=== PATIENT | female | born 1990 | race Caucasian/White ===

== ENCOUNTER 2019-05-06 19:42 | Emergency (ER) | payer BC ==
[~2019-05-06] VITALS: Ht 160 cm; Wt 83.0 kg
--- NOTE | 2019-05-06 19:49 | PHYS DOC ---
Adult General Chief Complaint Chief Complaint: "...I ve been having fever and chills the last two day.. can't seem to get warm at times... body aches.. tired.. my fever was 100. 4 at home.. I took some tylenol..." HPI HPI Patient is a 28 year old female who presents with above hx and complaints fever,arthralgia, malaise and myalgia. Pt. did get flu vaccination in 2019. Patient denies any travel outside of the [place] area recently. Patient normally follows at [facility]. No history immunosuppression. Review of Systems Review of Systems Constitutional: History of fever or chills [] Eyes: Denies change in visual acuity, redness, or eye pain [] HENT: History of nasal congestion and sore throat [] Respiratory: History of nonproductive cough Cardiovascular: No additional information not addressed in HPI [] GI: Denies abdominal pain, nausea, vomiting, bloody stools or diarrhea [] : Denies dysuria or hematuria [] Musculoskeletal: Complaints of myalgia or arthralgia Integument: Denies rash or skin lesions [] Neurologic: Denies headache, focal weakness or sensory changes [] Endocrine: Denies polyuria or polydipsia [] All other systems were reviewed and found to be within normal limits, except as documented in this note. Family History Family History Son goes to day care- occasional upper respiratory infection Current Medications Current Medications See nursing for home meds Allergies Allergies Allergic to albuterol Physical Exam Physical Exam Constitutional: Moderate acute distress, non-toxic appearance. [] HENT: Normocephalic, atraumatic, bilateral external ears normal, oropharynx moist, postpharyngeal drainage and erythema ,no oral exudates, nose swollen turbinates and clear rhinorrhea Eyes: PERRLA, EOMI, conjunctiva normal, no discharge. [] Neck: Normal range of motion, no tenderness, supple, no stridor. [] Cardiovascular: Tachycardia Heart rate regular rhythm, no murmur [] Lungs & Thorax: Bilateral breath sounds equal apex with few scattered wheezes on auscultation [] Abdomen: Bowel sounds normal, soft, no tenderness, no masses, no pulsatile masses. [] Skin: Warm, dry, no erythema, no rash. [] Back: No tenderness, no CVA tenderness. [] Extremities: No tenderness, no cyanosis, no clubbing, ROM intact, no edema. [] Neurologic: Alert and oriented X 3, normal motor function, normal sensory function, no focal deficits noted. [] Psychologic: Affect normal, judgement normal, mood normal. [] EKG EKG [] Radiology/Procedures Radiology/Procedures [] Course & Med Decision Making Course & Med Decision Making Pertinent Labs and Imaging studies reviewed. (See chart for details) Get adequate rest. Push fluids. Take Tylenol or ibuprofen for discomfort. Self isolate for 14 days. No travel. 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 Follow-up with C DEVIN for up-to-date information on CO-19 Impression: 1. Viral syndrome [] Dragon Disclaimer Dragon Disclaimer This electronic medical record was generated, in whole or in part, using a voice recognition dictation system. Departure Departure: Disposition: 01 HOME/RESIDENCE PRIOR TO ADM Condition: STABLE Referrals: PCP,UNKNOWN (PCP) Dragon Disclaimer This chart was dictated in whole or in part using Voice Recognition software in a busy, high-work load, and often noisy Emergency Department environment. It may contain unintended and wholly unrecognized errors or omissions. Dragon Disclaimer This chart was dictated in whole or in part using Voice Recognition software in a busy, high-work load, and often noisy Emergency Department environment. It may contain unintended and wholly unrecognized errors or omissions. JOHNATHAN JOHNSON MD May 06, 2019 19:49
[2019-05-06 20:52] LABS: BARBITURATES NEG (NEG); BENZODIAZEPINES NEG (NEG); CANNABINOIDS NEG (NEG); COCAINE NEG (NEG); METHADONE NEG (NEG); OPIATES NEG (NEG); PHENCYCLIDINE NEG (NEG)
[2019-05-06 20:57] LABS: INFLUENZA A PATIENT NEGATIVE (NEGATIVE); INFLUENZA B PATIENT NEGATIVE (NEGATIVE)
[2019-05-06 21:16] LABS: AMPHETAMINE/METHAMPHETAMINE NEG (NEG)
[2019-05-06 21:19] LABS: BILIRUBIN,URINE NEG (NEG); CLARITY,URINE CLEAR; COLOR,URINE YELLOW; GLUCOSE,URINE NEG (NEG); NITRITE,URINE NEG (NEG)
[2019-05-06 21:20] LABS: BACTERIA,URINE 0 /HPF (0-FEW); RBC,URINE 0 /HPF (0-2); SQUAMOUS EPITHELIAL CELL,UR OCC /LPF
[2019-05-06 21:40] VITALS: BP 103/83
== END 2019-05-06 21:41 | disposition home or self-care (01) ==
LOC: ER 19:42
DX: B34.9 Viral infection, unspecified (principal); Z88.8 Allergy status to other drugs, medicaments and biological substances
CPT/HCPCS: 36415; 80307; 81001; 81025; 87070; 87804; 87880; 99283

== ENCOUNTER 2020-05-01 17:11 | Emergency (ER) | payer BC ==
[~2020-05-01] VITALS: Ht 157.5 cm; Wt 89.2 kg
[2020-05-01 17:45] VITALS: BP 165/98
[2020-05-01] MEDS ORDERED: ONDANSETRON PF 4 MG/2 ML VIAL. IVP ONE (17:45)
[2020-05-01] MEDS ORDERED: IV NORMAL SALINE 1,000ML 1,000 ML IV ONE (17:45)
[2020-05-01 18:03] LABS: BASO # 0.1 x10^3/uL (0.0-0.2); BASO % 1 % (0-3); EOS # 0.1 x10^3/uL (0.0-0.7); EOS % 2 % (0-3); HEMATOCRIT 44.3 % (36.0-47.0); HEMOGLOBIN 14.4 g/dL (12.0-15.5); LYMPH # 1.6 x10^3/uL (1.0-4.8); LYMPH % 20 % (24-48); MEAN CORPUSCULAR HEMOGLOBIN 29 pg (25-35); MEAN CORPUSCULAR HGB CONC 33 g/dL (31-37); MEAN CORPUSCULAR VOLUME 88 fL (79-100); MONO # 0.6 x10^3/uL (0.0-1.1); MONO % 8 % (0-9); NEUT # 5.6 x10^3uL (1.8-7.7); NEUT % 69 % (31-73); PLATELET COUNT 279 x10^3/uL (140-400); RED BLOOD COUNT 5.02 x10^6/uL (3.50-5.40); RED CELL DISTRIBUTION WIDTH 15.5 % (11.5-14.5); WHITE BLOOD COUNT 8.1 x10^3/uL (4.0-11.0)
[2020-05-01 18:13] LABS: GFR 65.1; POTASSIUM 3.8 mmol/L (3.5-5.1)
[2020-05-01 18:32] LABS: BACTERIA,URINE 0 /HPF (0-FEW); BILIRUBIN,URINE NEG (NEG); CLARITY,URINE CLEAR; COLOR,URINE YELLOW; GLUCOSE,URINE NEG (NEG); NITRITE,URINE NEG (NEG); RBC,URINE 0 /HPF (0-2); SQUAMOUS EPITHELIAL CELL,UR FEW /LPF
--- NOTE | 2020-05-01 18:39 | RAD ---
Exam: Ultrasound OB less than 14 weeks Indication: Low pelvic pain Technique: Real-time grayscale and color Doppler images of the pelvis were obtained by the department infrastructure developer. Comparisons: None FINDINGS: Uterus measures 8.3 x 5.3 x 4.5 cm. Within the endometrium there is a anechoic cystic structure. No internal yolk sac or pole ident ified. Right ovary measures 2.4 x 2.0 x 1.8 cm. Left ovary measures 2.9 x 3.1 x 2.4 cm. Within the left ovary there is a mildly complex cystic lesion left ovary measuring 2.0 cm. There is a small amount of free fluid noted in the cul-de-sac. IMPRESSION: Question possible gestational sac within the endometrium. No pole or yolk sac identified. Diffe rential considerations include early IUP, failed IUP. A nonvisualized ectopic with single g estational sac would be rare. Recommend correlation with serial beta-hCGs and short-term follow-up ul trasound. Electronically signed by: Goldie Soria MD (05/01/2020 6:36 PM) BREANNA
--- NOTE | 2020-05-01 18:59 | PHYS DOC ---
Past History Past Medical History: No Pertinent History (KEISHA EATON APRN) Past Surgical History: No Surgical History Additional Past Surgical Histo: tubal reversal surgery (KEISHA EATON APRN) Alcohol Use: None (KEISHA EATON APRN) Adult General Chief Complaint Chief Complaint: ABDOMINAL PAIN IN HPI HPI Patient is a 29-year-old female who presents emergency department stating her DIRECTOR INTERNAL AUDIT at [facility] sent her to be seen in the ER today for evaluation of hCG level and transvaginal ultrasound. Patient states her last menstrual cycle was March 29. Lasted 3 days with normal duration of flow. States she is a 7 para 3 with 3 miscarriages early in . Patient states her hCG level today at her OB clinic was 3188. Patient states she has been having intermittent low pelvic cramping, states she just wants to find out if she has an ectopic or not. Patient reports a past surgical history of tubal ligation in 2015, tubal ligation reversal in 2017 so that she can have children, a cyst removed from her right wrist in 2008, reports an allergy to albuterol, states she takes no medications at home except for vitamin [id number]. Patient denies any recent fever or chills, denies abdominal pain or abdominal cramping at this time, denies chest pain shortness of breath chest congestion or nasal congestion. Patient denies vaginal discharge, vaginal bleeding, denies STI concerns. Patient denies any other physical complaints or physical concerns. (KEISHA EATON APRN) Review of Systems Review of Systems 14 body systems of review of systems have been reviewed. See HPI for pertinent positives and negative responses, otherwise all other systems are negative, nonpertinent or noncontributory. (KEISHA EATON APRN) Current Medications Current Medications Current Medications Medications (Trade) Dose Ordered Sig/Whit Start Time Stop Time Status Last Admin Dose Admin Ondansetron HCl (Zofran) 4 mg 1X ONCE 05/01/20 17:45 05/01/20 17:50 DC 05/01/20 17:58 4 MG Sodium Chloride 1,000 ml @ 1,000 mls/hr 1X ONCE 05/01/20 17:45 05/01/20 18:44 DC 05/01/20 17:58 1,000 MLS/HR (KEISHA EATON APRN) Allergies Allergies Allergies Coded Allergies Type Severity Reaction Last Updated Verified albuterol Allergy Intermediate Hives 05/06/19 Yes (KEISHA EATON APRN) Physical Exam Physical Exam Constitutional: Well developed, well nourished, no acute distress, non-toxic appearance. HENT: Normocephalic, atraumatic, bilateral external ears normal, oropharynx moist, no oral exudates, nose normal. Eyes: PERRLA, EOMI, conjunctiva normal, no discharge. Neck: Normal range of motion, no tenderness, supple, no stridor. Cardiovascular:Heart rate regular rhythm, no murmur, heart sounds S1-S2 to auscultation. Lungs & Thorax: Bilateral breath sounds clear to auscultation, no adventitious lung sounds appreciated. Abdomen: Bowel sounds normal, soft, no tenderness, no masses, no pulsatile masses. Skin: Warm, dry, no erythema, no rash. Back: No tenderness, no CVA tenderness. Extremities: No tenderness, no cyanosis, no clubbing, ROM intact, no edema. Neurologic: Alert and oriented X 3, normal motor function, normal sensory function, no focal deficits noted. Psychologic: Affect normal, judgement normal, mood normal. (KEISHA EATON APRN) Current Patient Data Vital Signs Vital Signs Date Time Temp Pulse Resp B/P (MAP) Pulse Ox O2 Delivery O2 Flow Rate FiO2 05/01/20 17:45 98.5 90 20 165/98 (120) 99 05/01/20 17:44 Room Air Lab Results Laboratory Tests Test 05/01/20 17:20 05/01/20 17:25 White Blood Count 8.1 x10^3/uL Red Blood Count 5.02 x10^6/uL Hemoglobin 14.4 g/dL Hematocrit 44.3 % Mean Corpuscular Volume 88 fL Mean Corpuscular Hemoglobin 29 pg Mean Corpuscular Hemoglobin Concent 33 g/dL Red Cell Distribution Width 15.5 % Platelet Count 279 x10^3/uL Neutrophils (%) (Auto) 69 % Lymphocytes (%) (Auto) 20 % Monocytes (%) (Auto) 8 % Eosinophils (%) (Auto) 2 % Basophils (%) (Auto) 1 % Neutrophils # (Auto) 5.6 x10^3uL Lymphocytes # (Auto) 1.6 x10^3/uL Monocytes # (Auto) 0.6 x10^3/uL Eosinophils # (Auto) 0.1 x10^3/uL Basophils # (Auto) 0.1 x10^3/uL Urine Collection Type Unknown Urine Color Yellow Urine Clarity Clear Urine pH 8.5 Urine Specific [place] 1.020 Urine Protein Trace Urine Glucose (UA) Neg mg/dL Urine Ketones (Stick) Neg mg/dL Urine Blood Neg Urine Nitrite Neg Urine Bilirubin Neg Urine Urobilinogen Dipstick 1.0 mg/dL Urine Leukocyte Esterase Trace Urine RBC 0 /HPF Urine WBC 1-4 /HPF Urine Squamous Epithelial Cells Few /LPF Urine Bacteria 0 /HPF Maternal Serum HCG Beta Subunit 3726 mIU/mL Sodium Level 141 mmol/L Potassium Level 3.8 mmol/L Chloride Level 106 mmol/L Carbon Dioxide Level 25 mmol/L Anion Gap 10 Blood Urea Nitrogen 10 mg/dL Creatinine 1.0 mg/dL Estimated GFR (Cockcroft-Gault) 65.1 Glucose Level 92 mg/dL Calcium Level 9.0 mg/dL Bedside Urine HCG, Qualitative hcg positive Current Medications Medications (Trade) Dose Ordered Sig/Whit Route PRN Reason Start Time Stop Time Status Last Admin Dose Admin Ondansetron HCl (Zofran) 4 mg 1X ONCE IVP 05/01/20 17:45 05/01/20 17:50 DC 05/01/20 17:58 Sodium Chloride 1,000 ml @ 1,000 mls/hr 1X ONCE IV 05/01/20 17:45 05/01/20 18:44 DC 05/01/20 17:58 Laboratory Tests Test 05/01/20 17:20 05/01/20 17:25 White Blood Count 8.1 x10^3/uL (4.0-11.0) Red Blood Count 5.02 x10^6/uL (3.50-5.40) Hemoglobin 14.4 g/dL (12.0-15.5) Hematocrit 44.3 % (36.0-47.0) Mean Corpuscular Volume 88 fL (79-100) Mean Corpuscular Hemoglobin 29 pg (25-35) Mean Corpuscular Hemoglobin Concent 33 g/dL (31-37) Red Cell Distribution Width 15.5 % (11.5-14.5) H Platelet Count 279 x10^3/uL (140-400) Neutrophils (%) (Auto) 69 % (31-73) Lymphocytes (%) (Auto) 20 % (24-48) L Monocytes (%) (Auto) 8 % (0-9) Eosinophils (%) (Auto) 2 % (0-3) Basophils (%) (Auto) 1 % (0-3) Neutrophils # (Auto) 5.6 x10^3uL (1.8-7.7) Lymphocytes # (Auto) 1.6 x10^3/uL (1.0-4.8) Monocytes # (Auto) 0.6 x10^3/uL (0.0-1.1) Eosinophils # (Auto) 0.1 x10^3/uL (0.0-0.7) Basophils # (Auto) 0.1 x10^3/uL (0.0-0.2) Urine Collection Type Unknown Urine Color Yellow Urine Clarity Clear Urine pH 8.5 Urine Specific [place] 1.020 Urine Protein Trace (NEG-TRACE) Urine Glucose (UA) Neg mg/dL (NEG) Urine Ketones (Stick) Neg mg/dL (NEG) Urine Blood Neg (NEG) Urine Nitrite Neg (NEG) Urine Bilirubin Neg (NEG) Urine Urobilinogen Dipstick 1.0 mg/dL (0.2 mg/dL) Urine Leukocyte Esterase Trace (NEG) Urine RBC 0 /HPF (0-2) Urine WBC 1-4 /HPF (0-4) Urine Squamous Epithelial Cells Few /LPF Urine Bacteria 0 /HPF (0-FEW) Maternal Serum HCG Beta Subunit 3726 mIU/mL (0-6) H Sodium Level 141 mmol/L (136-145) Potassium Level 3.8 mmol/L (3.5-5.1) Chloride Level 106 mmol/L (98-107) Carbon Dioxide Level 25 mmol/L (21-32) Anion Gap 10 (6-14) Blood Urea Nitrogen 10 mg/dL (7-20) Creatinine 1.0 mg/dL (0.6-1.0) Estimated GFR (Cockcroft-Gault) 65.1 Glucose Level 92 mg/dL (70-99) Calcium Level 9.0 mg/dL (8.5-10.1) POC Urine HCG, Qualitative hcg positive (Negative) (KEISHA EATON APRN) EKG EKG [] (KEISHA EATON APRN) Radiology/Procedures Radiology/Procedures PATIENT: MOIZ ROMERO GACCOUNT: [id number] : 1990 LOCATION: ER AGE: 29 SEX: F EXAM STATUS: REG ER ORD. PHYSICIAN: KEISHA EATON APRN REASON: LOW PELVIC PAIN PROCEDURE: TRANSVAGINAL Exam: Ultrasound OB less than 14 weeks Indication: Low pelvic pain Technique: Real-time grayscale and color Doppler images of the pelvis were obtained by the department swatch clerk. Comparisons: None FINDINGS: Uterus measures 8.3 x 5.3 x 4.5 cm. Within the endometrium there is a anechoic cystic structure. No internal yolk sac or pole identified. Right ovary measures 2.4 x 2.0 x 1.8 cm. Left ovary measures 2.9 x 3.1 x 2.4 cm. Within the left ovary there is a mildly complex cystic lesion left ovary measuring 2.0 cm. There is a small amount of free fluid noted in the cul-de-sac. IMPRESSION: Question possible gestational sac within the endometrium. No pole or yolk sac identified. Differential considerations include early IUP, failed IUP. A nonvisualized ectopic with single gestational sac would be rare. Recommend correlation with serial beta-hCGs and short-term follow-up ultrasound. Electronically signed by: Goldie Jorge MD (05/01/2020 6:36 PM) [facility] DICTATED AND SIGNED BY: GOLDIE JORGE MD DATE: 05/01/201830 (KEISHA EATON APRN) Heart Score C/O Chest Pain: No Risk Factors: Risk Factors: DM, Current or recent (<one month) smoker, HTN, HLP, family history of CAD, obesity. Risk Scores: Risk Factors: DM, Current or recent (<one month) smoker, HTN, HLP, family history of CAD, obesity. (KEISHA EATON APRN) Course & Med Decision Making Course & Med Decision Making Pertinent Labs and Imaging studies reviewed. (See chart for details) 29-year-old female, vital signs reviewed, presents emergency department with concerns of ectopic . Physical examination was unremarkable, however related to patient's history a beta-hCG, serum labs, urinalysis assay, transvaginal ultrasound was ordered. Patient's urine was not infected, patient's serum labs are unremarkable, patient's transvaginal ultrasound OB less than 14 weeks showed gestational sac endometrial, unlikely ectopic . Discussed findings with patient, discussed hCG level elevated to 3726 from her earlier hCG level today, patient gave verbal understanding of instructions, states she will follow-up with her DIRECTOR INTERNAL AUDIT tomorrow or Wednesday for reevaluation. Reevaluation of the patient, patient remains nontoxic in appearance, continues to deny abdominal pain or cramping. Patient gave verbal understanding of discharge home instructions, follow-up with PCP/DIRECTOR INTERNAL AUDIT tomorrow or Wednesday, return ER precautions and concerns, was discharged home without incident. (KEISHA EATON APRN) Dragon Disclaimer Dragon Disclaimer This electronic medical record was generated, in whole or in part, using a voice recognition dictation system. (KEISHA EATON APRN) Departure Departure: Impression: Primary Impression: First trimester Additional Impression: Abdominal pain during Disposition: 01 DC HOME SELF CARE/HOMELESS Condition: GOOD Referrals: KEVIN DUVAL RN, MSN, ADULT EDUCATION MANAGER (PCP) Patient Instructions: Abdominal Pain During Additional Instructions: You were seen in the emergency department today for abdominal pain during . We performed a transvaginal ultrasound, the findings were suggestive of a gestational sac with possible very early intrauterine versus failed . With your hCG levels rising, this is most likely a very early . The radiologist recommended a repeat ultrasound with your OB doctor soon. Please call them tomorrow and let them know your beta hCG level was 3726 today in the emergency department and to make an appointment to be seen tomorrow and/or Wednesday for reevaluation of your . Please return to the emergency department for worsening symptoms or other concerns. EMERGENCY DEPARTMENT GENERAL DISCHARGE INSTRUCTIONS Thank you for coming to [facility] (ED) today and trusting us with you care. We trust that you had a positivie experience in our Emergency Department. If you wish to speak to the department management, you may call the director at [phone]. YOUR FOLLOW UP INSTRUCTIONS ARE FOLLOWS: 1. Do you have a private Doctor? If you do not have a private doctor, please ask for a resource list of physicians or clinics that may be able to assist you with follow up care. 2. The Emergency Physician has interpreted your x-rays. The X-Ray specialist will also review them. If there is a change in the findings, you will be notified in 48 hours when at all possible. 3. A lab test or culture has been done, your results will be reviewed and you will be notified if you need a change in treatment. ADDITIONAL INSTRUCTIONS AND INFORMATION: 1. Your care today has been supervised by a physician who is specially trained in emergency care. Many problems require more than one evaluation for a complete diagnosis and treatment. We recommend that you schedule your follow up appointment as recommended to ensure complete treatment of you illness or injury. If you are unable to obtain follow up care and continue to have a problem, or if your condition worsens, we recommend that you return to the ED. 2. We are not able to safely determine your condition over the phone nor are we able to give sound medical advice over the phone. For these safety reasons, if you call for medical advice we will ask you to come to the ED for further evaluation. 3. If you have any questions regarding these discharge instructions please call the ED at [phone]. SAFETY INFORMATION: In the interest of safety, wellness, and injury prevention; we encourage you to wear your sealbelt, if you smoke; quite smoking, and we encourage family to use a protective helmet for bicycling and other sporting events that present an increased risk for head injury. IF YOUR SYMPTOMS WORSEN OR NEW SYMPTOMS DEVELOP, OR YOU HAVE CONCERNS ABOUT YOUR CONDITION; OR IF YOUR CONDITION WORSENS WHILE YOU ARE WAITING FOR YOUR FOLLOW UP APPOINTMENT; EITHER CONTACT YOUR PRIMARY CARE DOCTOR, THE PHYSICIAN WHOSE NAME AND NUMBER YOU WERE GIVEN, OR RETURN TO THE ED IMMEDIATELY. Attending Signature Attending Signature I have participated in the care of this patient and I have reviewed and agree with all pertinent clinical information above including history, exam, and recommendations. (JOHNATHAN JOHNSON MD) Problem Qualifiers Additional Impression: Abdominal pain during Trimester: first trimester Qualified Codes: O26.891 - Other specified related conditions, first trimester; R10.9 - Unspecified abdominal pain KEISHA EATON APRN May 01, 2020 18:59 JOHNATHAN JOHNSON MD May 02, 2020 05:54
== END 2020-05-01 19:05 | disposition home or self-care (01) ==
LOC: ER 17:11
DX: O26.891 Other specified pregnancy related conditions, first trimester (principal); R10.2 Pelvic and perineal pain; Z3A.00 Weeks of gestation of pregnancy not specified; Z88.8 Allergy status to other drugs, medicaments and biological substances
CPT/HCPCS: 36415; 76817; 80048; 81001; 81025; 84702; 85025; 87086; 96361; 96374; 99284; J2405; J7030

== ENCOUNTER 2021-04-19 09:00 | Emergency (ER) | payer BC ==
[~2021-04-19] VITALS: Ht 160 cm; Wt 85.5 kg
[2021-04-19 09:20] VITALS: BP 151/100
[2021-04-19] MEDS ORDERED: KETOROLAC 15 MG/ML VIAL. IM ONE (09:30)
--- NOTE | 2021-04-19 10:05 | RAD ---
EXAM: Lumbar spine, 3 views; sacrum and coccyx, 3 views. HISTORY: Fall. COMPARISON: None. FINDINGS: 3 views of the lumbar spine and sacrum and coccyx are obtained. There is no significant lis thesis. There is an incidental L4 limbus vertebrae. There is endplate remodeling and disc space narro wing at L3-L4. There is minimal levocurvature centered at L4-L5. The sacroiliac joints are intact. Th ere is no suspicious osseous lesion. IMPRESSION: 1. Mild degenerative change at L3-L4. 2. No acute osseous finding. Electronically signed by: Meme Mclain MD (04/19/2021 10:02 AM) [facility]
[2021-04-19 10:25] LABS: BASO % 0 % (0-3); EOS % 0 % (0-3); HEMATOCRIT 40.5 % (36.0-47.0); HEMOGLOBIN 13.6 g/dL (12.0-15.5); LYMPH # 1.6 x10^3/uL (1.0-4.8); LYMPH % 11 % (24-48); MEAN CORPUSCULAR HEMOGLOBIN 30 pg (25-35); MEAN CORPUSCULAR HGB CONC 34 g/dL (31-37); MEAN CORPUSCULAR VOLUME 89 fL (79-100); MONO % 7 % (0-9); NEUT # 12.3 x10^3uL (1.8-7.7); NEUT % 82 % (31-73); PLATELET COUNT 332 x10^3/uL (140-400); RED BLOOD COUNT 4.55 x10^6/uL (3.50-5.40); RED CELL DISTRIBUTION WIDTH 14.8 % (11.5-14.5)
--- NOTE | 2021-04-19 10:57 | PHYS DOC ---
Past History Past Medical History: No Pertinent History (JOURDAN GRAHAM MD) Past Surgical History: Other Additional Past Surgical Histo: salpingectomy (JOURDAN GRAHAM MD) Alcohol Use: Occasionally (JOURDAN GRAHAM MD) Adult General Chief Complaint Chief Complaint: MECHANICAL FALL HPI HPI Patient is a 30 year old female who presents with tailbone pain. The patient states she is slipped on ice last evening, sat down abruptly and had pain in her tailbone and lower back. She denies head trauma or neck pain, or any other injuries. She did not lose consciousness. She was able to ambulate, denies numbness or weakness in lower extremities, denies bowel or bladder incontinence or retention. No history of previous back injuries or surgeries. She also reports for the past week that she has been noticing a lot of bruises. Denies any bleeding problems, no significant history of this in the past. No recent illness or other changes in her health. (JOURDAN GRAHAM MD) Review of Systems Review of Systems Constitutional: Denies fever or chills Eyes: Denies change in visual acuity HENT: Denies nasal congestion or sore throat Respiratory: Denies cough or shortness of breath Cardiovascular: Denies chest pain GI: Denies abdominal pain, nausea, vomiting Musculoskeletal: Reports back pain Integument: Denies rash, reports bruises to extremities. Neurologic: Denies headache, focal weakness or sensory changes All other systems were reviewed and found to be within normal limits, except as documented in this note. (JOURDAN GRAHAM MD) Current Medications Current Medications Current Medications Medications (Trade) Dose Ordered Sig/Whit Start Time Stop Time Status Last Admin Dose Admin Ketorolac Tromethamine (Toradol 15mg Vial) 15 mg 1X ONCE 04/19/21 09:30 04/19/21 09:33 DC 04/19/21 09:58 15 MG (JOURDAN GRAHAM MD) Allergies Allergies Allergies Coded Allergies Type Severity Reaction Last Updated Verified albuterol Allergy Intermediate Hives 05/06/19 Yes (JOURDAN GRAHAM MD) Physical Exam Physical Exam Constitutional: Well developed, well nourished, no acute distress, non-toxic appearance. HENT: Normocephalic, atraumatic, bilateral external ears normal, oropharynx moist, no oral exudates, nose normal. Eyes: conjunctiva normal Neck: Normal range of motion, no tenderness Cardiovascular:Heart rate regular rhythm, no murmur Lungs & Thorax: Lungs clear to auscultation, no wheezing, no respiratory distress. Abdomen: Soft, nontender, nondistended Skin: Scattered ecchymosis to right forearm, right anterior lower leg. Back: Tenderness over the lower lumbar spine and coccyx, minimal ecchymosis, no step-offs Extremities: No tenderness, ROM intact, no edema. Neurologic: Alert and oriented X 3, symmetric strength and sensation to lower extremities Psychologic: Affect normal, judgement normal, mood normal. [] (JOURDAN GRAHAM MD) Current Patient Data Vital Signs Vital Signs Date Time Temp Pulse Resp B/P (MAP) Pulse Ox O2 Delivery O2 Flow Rate FiO2 04/19/21 09:20 97.7 94 16 151/100 (117) 97 Room Air Lab Results Laboratory Tests Test 04/19/21 10:01 White Blood Count 15.0 x10^3/uL (4.0-11.0) H Red Blood Count 4.55 x10^6/uL (3.50-5.40) Hemoglobin 13.6 g/dL (12.0-15.5) Hematocrit 40.5 % (36.0-47.0) Mean Corpuscular Volume 89 fL (79-100) Mean Corpuscular Hemoglobin 30 pg (25-35) Mean Corpuscular Hemoglobin Concent 34 g/dL (31-37) Red Cell Distribution Width 14.8 % (11.5-14.5) H Platelet Count 332 x10^3/uL (140-400) Neutrophils (%) (Auto) 82 % (31-73) H Lymphocytes (%) (Auto) 11 % (24-48) L Monocytes (%) (Auto) 7 % (0-9) Eosinophils (%) (Auto) 0 % (0-3) Basophils (%) (Auto) 0 % (0-3) Neutrophils # (Auto) 12.3 x10^3uL (1.8-7.7) H Lymphocytes # (Auto) 1.6 x10^3/uL (1.0-4.8) Monocytes # (Auto) 1.0 x10^3/uL (0.0-1.1) Eosinophils # (Auto) 0.0 x10^3/uL (0.0-0.7) Basophils # (Auto) 0.0 x10^3/uL (0.0-0.2) (JOURDAN GRAHAM MD) EKG EKG [] (JOURDAN GRAHAM MD) Radiology/Procedures Radiology/Procedures EXAM: Lumbar spine, 3 views; sacrum and coccyx, 3 views. HISTORY: Fall. COMPARISON: None. FINDINGS: 3 views of the lumbar spine and sacrum and coccyx are obtained. There is no significant listhesis. There is an incidental L4 limbus vertebrae. There is endplate remodeling and disc space narrowing at L3-L4. There is minimal levocurvature centered at L4-L5. The sacroiliac joints are intact. There is no suspicious osseous lesion. IMPRESSION: 1. Mild degenerative change at L3-L4. 2. No acute osseous finding. Electronically signed by: Meme House MD (04/19/2021 10:02 AM) [facility] DICTATED AND SIGNED BY: MEME HOUSE MD DATE: 04/19/21 1001[] (JOURDAN GRAHAM MD) Heart Score C/O Chest Pain: No Risk Factors: Risk Factors: DM, Current or recent (<one month) smoker, HTN, HLP, family history of CAD, obesity. Risk Scores: Risk Factors: DM, Current or recent (<one month) smoker, HTN, HLP, family history of CAD, obesity. (JOURDAN GRAHAM MD) Course & Med Decision Making Course & Med Decision Making Pertinent Labs and Imaging studies reviewed. (See chart for details) Patient presents with lower back pain and coccygeal pain after fall. Neurovascularly intact, no other injuries. Imaging obtained. No significant abnormality identified. She was also concerned about bruising, obtain CBC which shows mild leukocytosis but normal platelets, normal hemoglobin and hematocrit. Recommend follow-up with primary care physician for additional concerns related to bruising. For coccyx contusion, recommend rest, ice, ibuprofen, gave limited supply of Lee for severe breakthrough pain. No drinking or driving while taking this medication. Follow-up with primary care if not improving in 2 to 3 days. Return to the emergency department for numbness or weakness in lower extremities, loss of control of bowels or bladder, any otherwise worsening condition. Discharged home in stable condition. [] (JOURDAN GRAHAM MD) Dragon Disclaimer Dragon Disclaimer This electronic medical record was generated, in whole or in part, using a voice recognition dictation system. (JOURDAN GRAHAM MD) Departure Departure: Impression: Primary Impression: Coccyx contusion Disposition: HOME / SELF CARE / HOMELESS Condition: STABLE Referrals: KEVIN DUVAL RN, MSN, POLL WATCHER (PCP) Patient Instructions: Tailbone Injury, [id number] Additional Instructions: You were seen in the emergency department today for tailbone pain. Your x-ray did not show a broken bone, but bruising can still be really painful. Please rest, apply ice packs, sit in a comfortable position. Take ibuprofen 600 mg every 8 hours for a few days. You can take Lee for severe pain. Do not drink alcohol or drive while taking this medication. Follow-up with primary care if not improving in 2 to 3 days. Return to the emergency department for numbness or weakness in your legs, loss of control of bowels or bladder, any otherwise worsening condition. Scripts Hydrocodone Bit/Acetaminophen (HYDROCODONE-APAP 5-325 ) 1 Each Tablet 1-2 TAB PO PRN Q6HRS PRN for PAIN for 3 Days, #6 TAB 0 Refills Prov: JAQUAN DONOVAN APRN 04/19/21 Ibuprofen (IBUPROFEN) 600 Mg Tablet 600 MG PO Q8HRS PRN for PAIN, #20 TAB Prov: JOURDAN GRAHAM MD 04/19/21 JOURDAN GRAHAM MD Apr 19, 2021 10:57 JAQUAN DONOVAN APRN Apr 19, 2021 11:27
[2021-04-19] MEDS ORDERED: IBUP600T16 PO (11:07)
[2021-04-19] MEDS ORDERED: HYDR-2155 PO ×4 (11:07→11:26)
== END 2021-04-19 11:43 | disposition home or self-care (01) ==
LOC: ER 09:00
DX: S30.0XXA Contusion of lower back and pelvis, initial encounter (principal); S50.11XA Contusion of right forearm, initial encounter; S80.11XA Contusion of right lower leg, initial encounter; Z88.8 Allergy status to other drugs, medicaments and biological substances; W00.0XXA Fall on same level due to ice and snow, initial encounter; Y93.89 Activity, other specified; Y92.89 Other specified places as the place of occurrence of the external cause; Y99.8 Other external cause status
CPT/HCPCS: 36415; 72100; 72220; 85025; 96372; 99284; J1885